=== PATIENT | male | born 1965 | race Caucasian/White ===

== ENCOUNTER 2016-12-27 13:04 | Emergency (ER) | payer BC ==
[~2016-12-27] VITALS: Ht 172.7 cm; Wt 66.0 kg
[~2016-12-27 13:04] MED LIST: DICL75TA2 PO; EPP3/2 IM
[2016-12-27 13:07] VITALS: TEMP 37.2; Ht 172.7 cm; Wt 66.0 kg
[2016-12-27] MEDS ORDERED: HYDR-3983 PO (13:16)
[2016-12-27] MEDS ORDERED: ONDANSETRON INJ 2 MG/ML 2 ML VIAL IV STA (13:28)
[2016-12-27] MEDS ORDERED: HYDROmorphone INJ 0.5 MG/0.5 ML SYR IV STA (13:28)
[2016-12-27 13:45] LABS: BASO % 0.5 %; BASO ABS # 0.05 K/uL (0-0.2); COMPLETE YES; EOS % 0.3 %; HEMATOCRIT 39.8 % (42-52); IG% 0.1 %; LYMPH ABS # 2.51 K/uL (1.2-3.4); MEAN CELL VOLUME 93.9 fL (80-100); MEAN CORPUSCULAR HEMOGLOBIN 31.4 pg (25-34); MEAN CORPUSCULAR HGB CONC 33.4 g/dl (32-36); MEAN PLATELET VOLUME 10.4 fL (7.4-10.4); MONO % 4.8 %; NEUT % 68.3 %; PLATELET COUNT 284 K/uL (130-400); RED BLOOD COUNT 4.24 M/uL (4.7-6.1); WHITE BLOOD COUNT 9.64 K/uL (4.8-10.8)
[2016-12-27] MEDS ORDERED: HYDROmorphone INJ 1 MG/ML SYR IV STA ×3 (13:52→15:38)
[2016-12-27 13:55] LABS: PARTIAL THROMBOPLASTIN RATIO 0.9; PROTHROMBIN TIME (PATIENT) 10.5 SECONDS (9.0-12.0)
[2016-12-27 14:02] LABS: BUN/CREATININE RATIO 15.1 (10-20); CALCIUM 9.1 mg/dl (8.5-10.1); CREATININE 0.88 mg/dl (0.60-1.40); POTASSIUM 3.4 mmol/L (3.5-5.1)
--- NOTE | 2016-12-27 14:43 | DIAGNOSTIC IMAGING REPORT ---
LUMBAR SPINE 5 VIEWS CLINICAL HISTORY: Fall. Low back pain. FINDINGS: 5 views of the lumbar spine are compared to study dated 08/20/2014. The skeletal structures are well mineralized. There is no radiographic evidence of fracture or malalignment. Vertebral body height and alignment are maintained. The transverse and spinous processes are intact. There is no evidence of spondylolysis. There are tiny anterior and lateral marginal osteophytes. Mild to moderate disc space narrowing is seen at L4-L5 and L5-S1. The remaining intervertebral disc spaces are well-maintained. Mild facet arthropathy is seen in the lower lumbar region. The visualized bony pelvis appears intact. There is a nonobstructed abdominal bowel gas pattern. There is moderate colonic fecal retention. IMPRESSION: There is no radiographic evidence of fracture or malalignment involving the lumbosacral spine. Electronically signed by: Jermain Santillan M.D. 12/27/2016 2:42 PM Dictated Date/Time: 12/27/2016 2:41 PM
--- NOTE | 2016-12-27 14:44 | DIAGNOSTIC IMAGING REPORT ---
R FOOT MIN 3 VIEWS ROUTINE CLINICAL HISTORY: Right foot pain status post trauma COMPARISON: None. DISCUSSION: There is a comminuted intra-articular calcaneal fracture. No additional fractures are visualized. No dislocations are evident. IMPRESSION: Comminuted intra-articular fracture of the calcaneus. Electronically signed by: Alonso Markham M.D. 12/27/2016 2:43 PM Dictated Date/Time: 12/27/2016 2:43 PM
--- NOTE | 2016-12-27 14:45 | DIAGNOSTIC IMAGING REPORT ---
C-SPINE ROUTINE 4 OR 5 VIEWS CLINICAL HISTORY: Neck pain status post trauma COMPARISON STUDY: April 15, 2015 FINDINGS: The study is performed in a supine fashion. The prevertebral soft tissues are normal. There are degenerative changes most pronounced the C6-7 level. No fractures or traumatic subluxations are visualized. IMPRESSION: No fractures or traumatic subluxations identified Electronically signed by: Alonso Markham M.D. 12/27/2016 2:44 PM Dictated Date/Time: 12/27/2016 2:43 PM
--- NOTE | 2016-12-27 14:46 | DIAGNOSTIC IMAGING REPORT ---
RIGHT ANKLE 3 VIEWS; RIGHT TIBIA AND FIBULA 2 VIEWS CLINICAL HISTORY: Fall with right foot and leg injury. FINDINGS: AP and lateral views of the right tibia and fibula with AP, lateral, and oblique views of the right ankle are obtained. Correlation is made with radiographs of the right tibia and fibula dated 06/14/2005. The skeletal structures are well mineralized. There is no radiographic evidence of right tibial or fibular fracture. No fracture is seen at the ankle joint. A nondistracted calcaneal fracture is seen on the lateral ankle view. There is no significant loss of calcaneal height. The ankle mortise is intact. There is a small ankle joint effusion. Soft tissue edema is present in the hindfoot. The knee joint is intact. The soft tissues of the calf are normal in appearance. IMPRESSION: 1. There is no radiographic evidence of right tibial or fibular fracture. 2. No fracture is seen at the ankle joint. 3. Nondistracted calcaneal fracture with overlying soft tissue edema. Electronically signed by: Jermain Santillan M.D. 12/27/2016 2:45 PM Dictated Date/Time: 12/27/2016 2:42 PM
--- NOTE | 2016-12-27 14:48 | DIAGNOSTIC IMAGING REPORT ---
THORACIC SPINE 3 VIEWS CLINICAL HISTORY: Fall with thoracic back pain. FINDINGS: AP, lateral, and swimmer's views of the thoracic spine are obtained. No prior studies are available for comparison at the time of dictation. The skeletal structures are well mineralized. There is no radiographic evidence of fracture or malalignment in the thoracic spine. Vertebral body height and alignment are maintained. The disc spaces are preserved. The transverse processes and pedicles are grossly intact as seen on the frontal view. The visualized posterior ribs are intact. The imaged lung parenchyma appears clear. IMPRESSION: There is no radiographic evidence of fracture or malalignment involving the thoracic spine. Electronically signed by: Jermain Santillan M.D. 12/27/2016 2:46 PM Dictated Date/Time: 12/27/2016 2:45 PM
--- NOTE | 2016-12-27 14:48 | DIAGNOSTIC IMAGING REPORT ---
R HEEL MIN 2 VIEWS CLINICAL HISTORY: Right heel pain status post trauma COMPARISON: None. DISCUSSION: There is a mildly comminuted intra-articular fracture of the calcaneus. IMPRESSION: Comminuted intra-articular fracture of the calcaneus. Electronically signed by: Alonso Markham M.D. 12/27/2016 2:47 PM Dictated Date/Time: 12/27/2016 2:46 PM
--- NOTE | 2016-12-27 14:49 | DIAGNOSTIC IMAGING REPORT ---
RIGHT KNEE 2 VIEWS CLINICAL HISTORY: Fall with right knee pain. FINDINGS: AP and crosstable lateral views of the right knee are compared to study dated 06/14/2005. The skeletal structures are well mineralized. No fracture is seen. There is mild degenerative narrowing at the patellofemoral articulation. The medial and lateral compartments appear maintained. A calcified fabella is incidentally noted. Prepatellar soft tissue edema is noted. There is no large joint effusion. IMPRESSION: Prepatellar soft tissue swelling with no radiographic evidence of right knee fracture. Electronically signed by: Jermain Santillan M.D. 12/27/2016 2:47 PM Dictated Date/Time: 12/27/2016 2:47 PM
--- NOTE | 2016-12-27 16:19 | DIAGNOSTIC IMAGING REPORT ---
CT OF THE RIGHT FOOT WITHOUT CONTRAST CLINICAL HISTORY: Right calcaneal fracture. COMPARISON STUDY: Right heel and ankle radiographs performed earlier today. TECHNIQUE: Axial images of the right ankle and foot were obtained without IV contrast. Sagittal and coronal reconstructions were viewed. FINDINGS: There is no acute fracture the distal right tibia or fibula. Alignment of the right ankle is anatomic. There is a comminuted mildly displaced right calcaneal fracture. Fracture extends to the posterior facet of the subtalar joint. No intra-articular bone fragment is present. Associated soft tissue swelling is present. Talar dome is intact. Alignment of the tarsometatarsal joints is anatomic. There is an equivocal nondisplaced fracture within the dorsal base of the distal phalanx of the right first toe. No additional fractures are identified on since exam. IMPRESSION: 1. Acute comminuted mildly displaced right calcaneal fracture with extension to the posterior facet of the subtalar joint. No intra-articular bone fragments. 2. Equivocal nondisplaced acute fracture of the distal phalanx of the right first toe. Electronically signed by: Santos Fried M.D. 12/27/2016 4:18 PM Dictated Date/Time: 12/27/2016 4:02 PM
[2016-12-27] MEDS ORDERED: OXYC1TAB3 PO (16:44)
[2016-12-27 16:57] VITALS: BP 153/84; PULSE 80; O2SAT 98
--- NOTE | 2016-12-27 19:49 | EMERGENCY ROOM VISIT NOTE ---
History Report prepared by Jarad: Maxi Riggs Under the Supervision of: Dr. Ady Kathleen M.D. First contact with patient: 13:23 Chief Complaint: FALL Stated Complaint: FELL OFF LADDER, RT LEG/ANKLE PAIN-WC History of Present Illness The patient is a 51 year old male who presents to the Emergency Room with complaints of sharp ankle ankle pain that began 45 minutes ago. He rates his pain a 10/10 in severity. Prior to arrival, the patient accidentally fell off of a ladder about 8 feet in the air and landed on his right foot. He did not lo he is se consciousness, hit his head, or experience any weakness. He denies any headache, neck pain, abdominal pain, back pain, hip pain, arm pain, wrist pain, left leg pain, or numbness. He is having some mild right knee pain with palpation. He denies any known medical problems. He notes that he ate some fruit before he fell about 1 hour ago. Source of History: patient Onset: 45 minutes ago Position: ankle (right) Symptom Intensity: 10/10 Quality: sharp Timing: constant Associated Symptoms: No LOC, No headache, No neck pain, No abdominal pain, No back pain, No weakness, No numbness Note: He denies any arm pain, hip pain, wrist pain, or left leg pain. He is having some mild right knee pain. Review of Systems See HPI for pertinent positives & negatives. A total of 10 systems reviewed and were otherwise negative. Past Medical & Surgical Medical Problems: (1) No Known Active Medical Problems Family History Cancer Heart disease Hypertension Social History Smoking Status: Current Every Day Smoker Alcohol Use: none Drug Use: none Marital Status: Housing Status: lives with family Occupation Status: employed Current/Historical Medications Scheduled Hydrocodone/Acetaminophen 7.5MG/325MG ([place] 7.5MG/325MG), 1 TAB PO BID Scheduled PRN Oxycodone Immediate Rel Tab (Roxicodone Ir), 1-2 TAB PO Q4H PRN for Severe Pain Allergies Coded Allergies: Tramadol (Verified Allergy, Unknown, 08/24/13) Physical Exam Vital Signs Date Time Temp Pulse Resp B/P (MAP) Pulse Ox O2 Delivery O2 Flow Rate FiO2 12/27/16 16:57 80 20 153/84 98 12/27/16 15:44 89 20 148/93 97 Room Air 12/27/16 14:47 87 20 140/91 99 Room Air 12/27/16 13:07 37.2 72 22 149/86 96 Room Air Physical Exam Constitutional: Vital signs reviewed. Eyes: Pupils are equal round reactive to light. Conjunctiva are noninjected. ENT: Pharynx is clear without erythema or exudate. Mucous membranes are moist. Neck supple without meningeal signs. Respiratory: Clear to auscultation bilaterally. Breath sounds are equal bilaterally. Cardiovascular: Regular rate and rhythm. No rubs or gallops. GI: Soft, nondistended and nontender. Bowel sounds are present. Musculoskeletal: No midline tenderness to the cervical, thoracic, or lumbosacral spine. No hip tenderness. No upper extremity tenderness. Tenderness diffusely to the right ankle and calcaneus with normal distal pulses. Integumentary: No cyanosis. Neurological: The patient is awake and alert. No focal deficits. Psychiatric: Normal affect. Medical Decision & Procedures ER Provider Diagnostic Interpretation: Radiology results as stated below per my review and the radiologist's interpretation: RIGHT ANKLE 3 VIEWS; RIGHT TIBIA AND FIBULA 2 VIEWS CLINICAL HISTORY: Fall with right foot and leg injury. FINDINGS: AP and lateral views of the right tibia and fibula with AP, lateral, and oblique views of the right ankle are obtained. Correlation is made with radiographs of the right tibia and fibula dated 06/14/2005. The skeletal structures are well mineralized. There is no radiographic evidence of right tibial or fibular fracture. No fracture is seen at the ankle joint. A nondistracted calcaneal fracture is seen on the lateral ankle view. There is no significant loss of calcaneal height. The ankle mortise is intact. There is a small ankle joint effusion. Soft tissue edema is present in the hindfoot. The knee joint is intact. The soft tissues of the calf are normal in appearance. IMPRESSION: 1. There is no radiographic evidence of right tibial or fibular fracture. 2. No fracture is seen at the ankle joint. 3. Nondistracted calcaneal fracture with overlying soft tissue edema. Electronically signed by: Jermain Santillan M.D. 12/27/2016 2:45 PM Dictated Date/Time: 12/27/2016 2:42 PM THORACIC SPINE 3 VIEWS CLINICAL HISTORY: Fall with thoracic back pain. FINDINGS: AP, lateral, and swimmer's views of the thoracic spine are obtained. No prior studies are available for comparison at the time of dictation. The skeletal structures are well mineralized. There is no radiographic evidence of fracture or malalignment in the thoracic spine. Vertebral body height and alignment are maintained. The disc spaces are preserved. The transverse processes and pedicles are grossly intact as seen on the frontal view. The visualized posterior ribs are intact. The imaged lung parenchyma appears clear. IMPRESSION: There is no radiographic evidence of fracture or malalignment involving the thoracic spine. Electronically signed by: Jermain Santillan M.D. 12/27/2016 2:46 PM Dictated Date/Time: 12/27/2016 2:45 PM LUMBAR SPINE 5 VIEWS CLINICAL HISTORY: Fall. Low back pain. FINDINGS: 5 views of the lumbar spine are compared to study dated 08/20/2014. The skeletal structures are well mineralized. There is no radiographic evidence of fracture or malalignment. Vertebral body height and alignment are maintained. The transverse and spinous processes are intact. There is no evidence of spondylolysis. There are tiny anterior and lateral marginal osteophytes. Mild to moderate disc space narrowing is seen at L4-L5 and L5-S1. The remaining intervertebral disc spaces are well-maintained. Mild facet arthropathy is seen in the lower lumbar region. The visualized bony pelvis appears intact. There is a nonobstructed abdominal bowel gas pattern. There is moderate colonic fecal retention. IMPRESSION: There is no radiographic evidence of fracture or malalignment involving the lumbosacral spine. Electronically signed by: Jermain Santillan M.D. 12/27/2016 2:42 PM Dictated Date/Time: 12/27/2016 2:41 PM RIGHT KNEE 2 VIEWS CLINICAL HISTORY: Fall with right knee pain. FINDINGS: AP and crosstable lateral views of the right knee are compared to study dated 06/14/2005. The skeletal structures are well mineralized. No fracture is seen. There is mild degenerative narrowing at the patellofemoral articulation. The medial and lateral compartments appear maintained. A calcified fabella is incidentally noted. Prepatellar soft tissue edema is noted. There is no large joint effusion. IMPRESSION: Prepatellar soft tissue swelling with no radiographic evidence of right knee fracture. Electronically signed by: Jermain Santillan M.D. 12/27/2016 2:47 PM Dictated Date/Time: 12/27/2016 2:47 PM R FOOT MIN 3 VIEWS ROUTINE CLINICAL HISTORY: Right foot pain status post trauma COMPARISON: None. DISCUSSION: There is a comminuted intra-articular calcaneal fracture. No additional fractures are visualized. No dislocations are evident. IMPRESSION: Comminuted intra-articular fracture of the calcaneus. Electronically signed by: Alonso Markham M.D. 12/27/2016 2:43 PM Dictated Date/Time: 12/27/2016 2:43 PM C-SPINE ROUTINE 4 OR 5 VIEWS CLINICAL HISTORY: Neck pain status post trauma COMPARISON STUDY: April 15, 2015 FINDINGS: The study is performed in a supine fashion. The prevertebral soft tissues are normal. There are degenerative changes most pronounced the C6-7 level. No fractures or traumatic subluxations are visualized. IMPRESSION: No fractures or traumatic subluxations identified Electronically signed by: Alonso Markham M.D. 12/27/2016 2:44 PM Dictated Date/Time: 12/27/2016 2:43 PM RIGHT ANKLE 3 VIEWS; RIGHT TIBIA AND FIBULA 2 VIEWS CLINICAL HISTORY: Fall with right foot and leg injury. FINDINGS: AP and lateral views of the right tibia and fibula with AP, lateral, and oblique views of the right ankle are obtained. Correlation is made with radiographs of the right tibia and fibula dated 06/14/2005. The skeletal structures are well mineralized. There is no radiographic evidence of right tibial or fibular fracture. No fracture is seen at the ankle joint. A nondistracted calcaneal fracture is seen on the lateral ankle view. There is no significant loss of calcaneal height. The ankle mortise is intact. There is a small ankle joint effusion. Soft tissue edema is present in the hindfoot. The knee joint is intact. The soft tissues of the calf are normal in appearance. IMPRESSION: 1. There is no radiographic evidence of right tibial or fibular fracture. 2. No fracture is seen at the ankle joint. 3. Nondistracted calcaneal fracture with overlying soft tissue edema. Electronically signed by: Jermain Santillan M.D. 12/27/2016 2:45 PM Dictated Date/Time: 12/27/2016 2:42 PM R HEEL MIN 2 VIEWS CLINICAL HISTORY: Right heel pain status post trauma COMPARISON: None. DISCUSSION: There is a mildly comminuted intra-articular fracture of the calcaneus. IMPRESSION: Comminuted intra-articular fracture of the calcaneus. Electronically signed by: Alonso Markham M.D. 12/27/2016 2:47 PM Dictated Date/Time: 12/27/2016 2:[address] OF THE RIGHT FOOT WITHOUT CONTRAST CLINICAL HISTORY: Right calcaneal fracture. COMPARISON STUDY: Right heel and ankle radiographs performed earlier today. TECHNIQUE: Axial images of the right ankle and foot were obtained without IV contrast. Sagittal and coronal reconstructions were viewed. FINDINGS: There is no acute fracture the distal right tibia or fibula. Alignment of the right ankle is anatomic. There is a comminuted mildly displaced right calcaneal fracture. Fracture extends to the posterior facet of the subtalar joint. No intra-articular bone fragment is present. Associated soft tissue swelling is present. Talar dome is intact. Alignment of the tarsometatarsal joints is anatomic. There is an equivocal nondisplaced fracture within the dorsal base of the distal phalanx of the right first toe. No additional fractures are identified on since exam. IMPRESSION: 1. Acute comminuted mildly displaced right calcaneal fracture with extension to the posterior facet of the subtalar joint. No intra-articular bone fragments. 2. Equivocal nondisplaced acute fracture of the distal phalanx of the right first toe. Electronically signed by: Santos Fried M.D. 12/27/2016 4:18 PM Dictated Date/Time: 12/27/2016 4:02 PM Laboratory Results 12/27/16 13:16 Red Blood Count 4.24, Mean Corpuscular Volume 93.9, Mean Corpuscular Hemoglobin 31.4, Mean Corpuscular Hemoglobin Concent 33.4, Mean Platelet Volume 10.4, Neutrophils (%) (Auto) 68.3, Lymphocytes (%) (Auto) 26.0, Monocytes (%) (Auto) 4.8, Eosinophils (%) (Auto) 0.3, Basophils (%) (Auto) 0.5, Neutrophils # (Auto) 6.58, Lymphocytes # (Auto) 2.51, Monocytes # (Auto) 0.46, Eosinophils # (Auto) 0.03, Basophils # (Auto) 0.05 12/27/16 13:16 Test 12/27/16 13:16 White Blood Count 9.64 K/uL (4.8-10.8) Red Blood Count 4.24 M/uL (4.7-6.1) Hemoglobin 13.3 g/dL (14.0-18.0) Hematocrit 39.8 % (42-52) Mean Corpuscular Volume 93.9 fL (80-100) Mean Corpuscular Hemoglobin 31.4 pg (25-34) Mean Corpuscular Hemoglobin Concent 33.4 g/dl (32-36) Platelet Count 284 K/uL (130-400) Mean Platelet Volume 10.4 fL (7.4-10.4) Neutrophils (%) (Auto) 68.3 % Lymphocytes (%) (Auto) 26.0 % Monocytes (%) (Auto) 4.8 % Eosinophils (%) (Auto) 0.3 % Basophils (%) (Auto) 0.5 % Neutrophils # (Auto) 6.58 K/uL (1.4-6.5) Lymphocytes # (Auto) 2.51 K/uL (1.2-3.4) Monocytes # (Auto) 0.46 K/uL (0.11-0.59) Eosinophils # (Auto) 0.03 K/uL (0-0.5) Basophils # (Auto) 0.05 K/uL (0-0.2) RDW Standard Deviation 42.8 fL (36.4-46.3) RDW Coefficient of Variation 12.5 % (11.5-14.5) Immature Granulocyte % (Auto) 0.1 % Immature Granulocyte # (Auto) 0.01 K/uL (0.00-0.02) Prothrombin Time 10.5 SECONDS (9.0-12.0) Prothromb Time International Ratio 1.0 (0.9-1.1) Activated Partial Thromboplast Time 24.5 SECONDS (21.0-31.0) Partial Thromboplastin Ratio 0.9 Anion Gap 9.0 mmol/L (3-11) Est Creatinine Clear Calc Drug Dose 94.8 ml/min Estimated GFR () 116.9 Estimated GFR (Non- 100.9 BUN/Creatinine Ratio 15.1 (10-20) Calcium Level 9.1 mg/dl (8.5-10.1) Laboratory results as reviewed by me. Medications Administered Medications (Trade) Dose Ordered Sig/Love Route Start Time Stop Time Status Last Admin Dose Admin Hydromorphone HCl (Dilaudid Inj) 0.5 mg NOW STAT IV 12/27/16 13:28 12/27/16 13:31 DC 12/27/16 13:36 0.5 MG Ondansetron HCl (Zofran Inj) 4 mg NOW STAT IV 12/27/16 13:28 12/27/16 13:31 DC 12/27/16 13:36 4 MG Hydromorphone HCl (Dilaudid Inj) 0.5 mg NOW STAT IV 12/27/16 13:52 12/27/16 13:54 DC 12/27/16 14:00 0.5 MG Hydromorphone HCl (Dilaudid Inj) 0.5 mg NOW STAT IV 12/27/16 14:46 12/27/16 14:50 DC 12/27/16 14:58 0.5 MG Hydromorphone HCl (Dilaudid Inj) 1 mg NOW STAT IV 12/27/16 15:38 12/27/16 15:39 DC 12/27/16 15:44 1 MG ED Course 1323: The patient was evaluated in room A10. A complete history and physical exam was performed. 1328: Ordered Zofran Inj 4 mg IV, Dilaudid Inj 0.5 mg IV 1352: Ordered Dilaudid Inj 0.5 mg IV 1446: Ordered Dilaudid Inj 0.5 mg IV 1510: The patient was seen by [facility] in the past for problems with the nerves in his right arm. He is currently on Vicodin for pain management. 1535: I spoke with Dr. Moore of [facility] at this time. He recommended a bulky dressing with a splint. He will see the patient in his office later this week. He also requested a CT scan before the patient is discharged. The patient requested more pain medication. 1538: Ordered Dilaudid Inj 1 mg IV 1641: The patient mentioned that he is out of his Vicodin prescription and would like something stronger for the pain. 1654: Upon reevaluation, the patient appeared to have improvement of his symptoms. I discussed tonight's findings with him. He verbalized agreement of the treatment plan. He was discharged home. Medical Decision This is a 51-year-old male who presents with injuries after fall. Differential diagnosis includes calcaneal fracture, ankle fracture, contusion, dislocation, vertebral fracture. I did perform a limited focused review of portions of the patient's old chart on the electronic medical record. The patient has had no recent pertinent visits to this hospital. I did evaluate the patient as noted above. The patient is having severe pain to his right heel after falling onto it. He denies any other injuries. On his exam he has significant tenderness to his calcaneus. IV access was established. The patient was treated with multiple doses of IV Dilaudid. He is currently on Vicodin for chronic pain to his arms. He does have a tolerance for narcotics. I did order and personally review the patient's x-rays as described above. He does have a comminuted intra-articular calcaneal fracture. No vertebral fracture is noted. I did order and review the patient's blood work as noted in the electronic medical record. I did discuss the test results with the patient. I did discuss the case with Dr. Moore of [facility]. He recommended getting an MRI and will follow up with the patient as an outpatient later this week. The patient was placed in a bulky dressing and placed in a posterior mold with stirrup. I did order a CT of the right foot. I did review the images myself as well as the radiology report as described above. He was discharged with crutches and told to be nonweightbearing. He was given a prescription for oxycodone for pain. [place] Drug Monitoring Program Search Results: patient reviewed within database Drug Monitoring Findings: He was given Vicodin on November 29, 30 tablets. No other issues. Medication Reconcilliation Current Medication List: was personally reviewed by me Blood Pressure Screening Patient's blood pressure: Elevated blood pressure Blood pressure disposition: Referred to PCP Consults Time Called: 1530 Consulting Physician: Dr. Moore - Orthopedics Returned Call: [phone] We discussed the patient's case. He recommended a bulky dressing with a splint. He will follow up with the patient in his office later this week. He also requested a CT scan before discharge. Impression Primary Impression: Right calcaneal fracture Additional Impression: Fall Scribe Attestation The scribe's documentation has been prepared under my direct and personally reviewed by me in its entirety. I confirm that the note above accurately reflects all work, treatment, procedures, and medical decision making performed by me. Departure Information Dispostion Home / Self-Care Prescriptions Oxycodone Immediate Rel Tab (ROXICODONE IR) 5 Mg Tab 1-2 TAB PO Q4H Y for Severe Pain, #30 TAB Prov: Ady Kathleen M.D. 12/27/16 Referrals No Doctor, Assigned (PCP) Darnell Moore D.O. Dietrich, Henry T., M.D. Forms HOME CARE DOCUMENTATION FORM, IMPORTANT VISIT INFORMATION Patient Instructions My [facility] Additional Instructions You have been examined and treated today on an emergency basis only. This is not a substitute for, or an effort to provide, complete comprehensive medical care. It is impossible to recognize and treat all injuries or illnesses in a single emergency department visit. It is therefore important that you follow up closely with Dr. Moore of orthopedics later this week. Call as soon as possible for an appointment. Return for worsening symptoms or if you develop loss of sensation or strength in the right foot, discoloration or excessive coldness to the toes, or any other concerning symptoms. Do not put any weight on your right foot. Problem Qualifiers Primary Impression: Right calcaneal fracture Encounter type: initial encounter Fracture type: closed Fracture morphology : intra-articular Fracture alignment: nondisplaced Qualified Codes: S92.064A - Nondisplaced intraarticular fracture of right calcaneus, initial encounter for closed fracture Additional Impression: Fall Encounter type: initial encounter Qualified Codes: W19.XXXA - Unspecified fall, initial encounter
== END 2016-12-27 16:58 | disposition home or self-care (01) ==
LOC: C.EDB 13:06 → C.EDA 16:58
DX: S92.061A Displaced intraarticular fracture of right calcaneus, initial encounter for closed fracture (principal); S92.424A Nondisplaced fracture of distal phalanx of right great toe, initial encounter for closed fracture; W11.XXXA Fall on and from ladder, initial encounter; Z80.9 Family history of malignant neoplasm, unspecified; Z82.49 Family history of ischemic heart disease and other diseases of the circulatory system; F17.210 Nicotine dependence, cigarettes, uncomplicated

== ENCOUNTER 2019-09-14 10:16 | Inpatient (IN) ==
--- NOTE | 2019-08-29 10:39 | PAT Medication Instructions ---
Medication Instructions Date of Service August 29, 2019 Home Medications buprenorphine-naloxone 1 film SUBLINGUAL QAM fluticasone propionate [Flonase Allergy Relief] 1 spray INTRANASAL QAM PRN oxymetazoline [Afrin (oxymetazoline)] 2 spray INTRANASAL Q12H PRN DO NOT take the morning of surgery oxymetazoline [Afrin (oxymetazoline)] 2 spray INTRANASAL Q12H PRN Take morning of surgery With a small sip of water, OTHERWISE NOTHING TO EAT OR DRINK AFTER MIDNIGHT: buprenorphine-naloxone 1 film SUBLINGUAL QAM fluticasone propionate [Flonase Allergy Relief] 1 spray INTRANASAL QAM PRN (if needed) Take evening before surgery fluticasone propionate [Flonase Allergy Relief] 1 spray INTRANASAL QAM PRN (if needed) oxymetazoline [Afrin (oxymetazoline)] 2 spray INTRANASAL Q12H PRN (if needed) Other Notes If you have any questions please call us at [phone] or [phone] or [phone] or [phone]
--- NOTE | 2019-08-31 11:12 | Anesthesiology Consultation ---
Date of Service August 31, 2019 Assessment & Plan (1) Encounter for pre-operative examination: COVID Status: As of 08/29 nurse assessment, patient denies travel to endemic area, known exposure/sick contacts, or symptoms of COVID19. Preoperative COVID19 testing to be completed 3 days prior to surgery. Chart Review Chart Review: Acceptable Risk for Surgery and Patient seen in Pre Admission Testing Teaching & Discussion Instructed NPO after midnight before surgery, except medications with 15 cc of water. Medication instructions provided according to the PAT guidelines. History Surgery Operation Date: 09/14/19 10:35 Proposed Procedures p L4-L5 Decompression Fusion, Spinal Cord Monitoring - Sam Tineo, Height/Weight Height: 5 ft 8 in Weight: 67.9 kg Allergies Allergy/AdvReac Type Severity Reaction Status Date / Time tramadol Allergy Unknown UNABLE TO Verified 08/22/19 15:34 URINATE Medications Home Medications Medication Instructions Recorded Confirmed Last Taken buprenorphine-naloxone 1 film SUBLINGUAL QAM 11/10/18 08/22/19 11/25/18 fluticasone propionate [Flonase 1 spray INTRANASAL QAM PRN 08/22/19 08/22/19 Unknown Allergy Relief] oxymetazoline [Afrin 2 spray INTRANASAL Q12H PRN 08/22/19 08/22/19 Unknown (oxymetazoline)] Past Medical History Medical History Anxiety (Chronic) Arthritis Chronic back pain TO BOTH LEGS/FEET Gastroesophageal reflux disease HX History of opioid abuse Currently on Suboxone. History of palpitations RAPID HEART RATE ON OCC, R/T ANXIETY Exercise / Class Metabolic Activity 1 > 8 Run/Swim/Ski/Tennis (PRIOR TO BACK BEING THIS BAD) Past Family History Family History Uncle Family history of diabetes mellitus Other No pertinent family history in first degree relatives Past Surgical History Surgical History H/O elbow surgery RIGHT ULNAR NERVE History of colonoscopy History of esophagogastroduodenoscopy (EGD) History of hand surgery LEFT LIGAMENT SURGERY History of herniorrhaphy UMBILICAL Past Anesthesia History No Hx of Anesthesia Complications and No Family Hx of Anesthesia Complications History of PONV No Hx of PONV and No Hx of Motion Sickness Social History Smoking Status: Former smoker Do You Dip or Chew Tobacco: Yes (1 CAN PER WEEK) Smoking End Date: QUIT 2018-USED TO SMOKE UP TO 1 PPD Hx Alcohol Use: No Hx Substance Use: Yes substance use type: marijuana Substance Use Type Other:: USES MARIJUANA DAILY-1 JOINT A DAY Review of Systems Pt denies any recent chest pain, shortness of breath, cough, fever or URI. +palpitations +severe back pain Physical Exam Vital Signs BP: 157/94 (pt is visibly in significant pain, hurts worse to sit) P: 77bpm SPO2: 99% RA T: 77bpm R: 98.4 F Constitutional + acute distress (pacing, wincing) ENMT Mouth: + dental restorations (lower R premolar implant); no chipped teeth and no loose teeth Thyromental Distance: > or= 3.5 Finger Breadths (3.5) Mallampati Class: II Neck normal visual inspection; neck extension not limited Respiratory normal respiratory effort Auscultation: lungs clear to auscultation bilaterally Cardiovascular Rate/Rhythm: regular rate and regular rhythm Heart Sounds: no murmur Testing Laboratory Results 08/31/19 11:20 08/31/19 11:20 PT 10.8 Seconds (9.0-12.0) 08/31/19 11:20 INR 1.0 (0.9-1.1) 08/31/19 11:20 APTT 29.7 Seconds (21.0-31.0) 08/31/19 11:20 Urine Color Yellow 08/31/19 Unknown Urine Appearance Clear (Clear) 08/31/19 Unknown Urine pH 6.0 (4.5-7.5) 08/31/19 Unknown Ur Specific [place] 1.011 (1.000-1.030) 08/31/19 Unknown Urine Protein Negative (Negative) 08/31/19 Unknown Urine Glucose (UA) Negative (Negative) 08/31/19 Unknown Urine Ketones Negative (Negative) 08/31/19 Unknown Urine Nitrite Negative (Negative) 08/31/19 Unknown Ur Leukocyte Esterase Negative (Negative) 08/31/19 Unknown Blood Type O Negative 08/31/19 11:20 Antibody Screen NEGATIVE 08/31/19 11:20 Electrocardiogram Date: 11/10/18 Sinus rhythm @ 85bpm with sinus arrhythmia with occasional PVCs. Otherwise normal EKG. Chest X-Ray Date: 08/31/19 Findings: + NAD Lungs are mildly hyperinflated.
--- NOTE | 2019-08-31 11:43 | XRay Report ---
XR chest Pre-admission PA/Lat HISTORY: 54 years-old Male pat preoperative exam. No acute chest complaints COMPARISON: Chest radiograph 04/22/2013 TECHNIQUE: PA and lateral views of the chest FINDINGS: Lungs are mildly hyperinflated. No pneumothorax, pleural effusion, airspace consolidation or overt pu lmonary edema. Bones of the chest appear grossly intact. IMPRESSION: No acute process. ACT 112: Negative or not required by law. The above report was generated using voice recognition software. It may contain grammatical, syntax o r spelling errors. Electronically signed by: Hai Gross M.D. 08/31/2019 11:41 AM
[2019-08-31 13:04] LABS: Appearance Urine Clear (Clear); Bilirubin Urine Negative (Negative); Blood Urine Negative (Negative); Color Urine Yellow; Glucose Urine UA Negative (Negative); Ketones Urine Negative (Negative); Leukocyte Esterase Urine Negative (Negative); Nitrite Urine Negative (Negative); Protein Urine Negative (Negative); Specific Gravity Urine 1.011 (1.000-1.030); Urobilinogen Urine Negative (Negative)
[2019-08-31 13:06] LABS: Basophils # (auto) 0.04 K/uL (0-0.2); Basophils % (auto) 0.6 %; Eosinophils # (auto) 0.11 K/uL (0-0.5); Eosinophils % (auto) 1.6 %; Hematocrit (blood only) 41.4 % (42-52); Hemoglobin 13.9 g/dL (14.0-18.0); Immature Granulocytes # (auto) 0.02 K/uL (0.00-0.02); Immature Granulocytes % (auto) 0.3 %; Lymphocytes % (auto) 40.2 %; Mean Corpuscular Hemoglobin 31.4 pg (25-34); Mean Corpuscular Hgb Conc 33.6 g/dL (32-36); Mean Corpuscular Volume 93.7 fL (80-100); Mean Platelet Volume 10.8 fL (7.4-10.4); Monocytes # (auto) 0.36 K/uL (0.11-0.59); Monocytes % (auto) 5.2 %; Neutrophils # (auto) 3.63 K/uL (1.4-6.5); Neutrophils % (auto) 52.1 %; Platelet Count 280 K/uL (130-400); RDW Coefficient of Variation 12.9 % (11.5-14.5); RDW Standard Deviation 44.1 fL (36.4-46.3); Red Blood Count 4.42 M/uL (4.7-6.1); White Blood Count 6.96 K/uL (4.8-10.8)
[2019-08-31 13:09] LABS: BUN Creatinine Ratio 13.8 (10-20); Est GFR (African American) 117.3; Est GFR (Non-African American) 101.2; Potassium 3.7 mmol/L (3.5-5.1)
[2019-08-31 13:18] LABS: Partial Thromboplastin Ratio 1.1; Partial Thromboplastin Time 29.7 Seconds (21.0-31.0); Prothrombin Time 10.8 Seconds (9.0-12.0)
[~2019-09-14 10:16] MED LIST changes: +ACETAMINOPHEN 500 MG TAB PO SCH; +CEFAZOLIN 1000MG 1,000 MG/7.5 ML SYR IV SCH; +CeleBREX 200 MG CAP PO SCH; -DICL75TA2 PO; -EPP3/2 IM; +GABAPENTIN 900 MG DOSE PO SCH; +LR 15ML/HR IV SCH
[2019-09-14] MEDS ORDERED: ATROPINE SULFATE 0.1 MG/ML 10ML SYR IV PRN (12:43)
[2019-09-14] MEDS ORDERED: ONDANSETRON INJ 2 MG/ML 2 ML VIAL IV PRN ×2 (12:43→19:22)
[2019-09-14] MEDS ORDERED: MIDAZOLAM HCL 1 MG/ML 2ML VIAL ONE (13:03)
[2019-09-14] MEDS ORDERED: fentaNYL citrate 100 MCG/2 ML VIAL ONE ×2 (13:03→17:26)
[2019-09-14] MEDS ORDERED: HYDROmorphone INJ 2 MG/ML SYR/VIAL ONE ×3 (13:04→18:06)
--- NOTE | 2019-09-14 14:09 | History & Physical Bridge Note ---
Date of Service September 14, 2019 History & Physical Bridge Note I have examined the patient, reviewed the History & Physical and in the interval since the performance of the History & Physical I have noted the following changes of clinical significance: no changes noted
--- NOTE | 2019-09-14 14:10 | History & Physical Report ---
Date of Service September 14, 2019 Assessment & Plan (1) Neurogenic claudication due to lumbar spinal stenosis: L4-L5 decompression fusion Present on Admission?: Yes History of Present Illness Chief Complaint: Back and leg pain Primary Care Provider: Chitra Cruz DO This is a 54-year-old male who presents with worsening back and leg pain. After failing extensive course of nonoperative care is here for surgical intervention. Allergies Allergy/AdvReac Type Severity Reaction Status Date / Time tramadol Allergy Unknown UNABLE TO Verified 09/14/19 10:35 URINATE Home Medications Home Medications Medication Instructions Recorded Confirmed Type buprenorphine-naloxone 1 film SUBLINGUAL QAM 11/10/18 09/14/19 History fluticasone propionate [Flonase 1 spray INTRANASAL QAM PRN 08/22/19 09/14/19 History Allergy Relief] oxymetazoline [Afrin 2 spray INTRANASAL Q12H PRN 08/22/19 09/14/19 History (oxymetazoline)] acetaminophen [Acetaminophen Extra 500 mg PO Q6H PRN 09/14/19 09/14/19 History Strength] Past Med/Surg History Medical History Anxiety (Chronic) Arthritis Chronic back pain TO BOTH LEGS/FEET Gastroesophageal reflux disease HX History of opioid abuse Currently on Suboxone. History of palpitations RAPID HEART RATE ON OCC, R/T ANXIETY Surgical History H/O elbow surgery RIGHT ULNAR NERVE History of colonoscopy History of esophagogastroduodenoscopy (EGD) History of hand surgery LEFT LIGAMENT SURGERY History of herniorrhaphy UMBILICAL Family History Uncle Family history of diabetes mellitus Other No pertinent family history in first degree relatives Social History Preferred Language: Sudanese Communication Ability: Effective Curtain Stretcher Required: No Beliefs That Will Affect Care: None Current Living Situation: Spouse Other Information That Helps Us Care for You: No Feels Safe at Home: Yes Safety Concerns: Feels Safe At This Time Smoking Status: Former smoker Do You Dip or Chew Tobacco: Yes (1 CAN PER WEEK) ; Smoking End Date: QUIT 2018-USED TO SMOKE UP TO 1 PPD ; Second Hand Exposure: No ; Hx Alcohol Use: No Hx Substance Use: Yes substance use type: marijuana Substance Use Type Other:: USES MARIJUANA DAILY-1 JOINT A DAY Physical Exam Physical Exam: Patient is alert and oriented neurologically intact. Heart regular rate and rhythm. Lungs clear to auscultation. Results & Data Vital Signs (Past 12 Hours) Vital Signs Temp Pulse Resp BP Pulse Ox 09/14/19 10:44 37 C 75 16 122/79 99
[2019-09-14] MEDS ORDERED: EPINEPHrine INJ 1 MG/ML AMP ONE (14:57)
[2019-09-14] MEDS ORDERED: BUPIVACAINE 0.5 % 5 MG/1 ML MPF 30ML VIAL ONE (14:57)
[2019-09-14] MEDS ORDERED: BACITRACIN INJ 50,000 UNIT VIAL ONE (14:57)
[2019-09-14] MEDS ORDERED: ONDANSETRON INJ 2 MG/ML 2 ML VIAL ONE (15:35)
[2019-09-14] MEDS ORDERED: LIDOCAINE HCL 2% 2 ML VIAL/AMP(20MG/ML) INFIL ONE (15:35)
[2019-09-14] MEDS ORDERED: PROPOFOL IV EMULSION 10 MG/ML 20 ML VIAL IV ONE (15:35)
[2019-09-14] MEDS ORDERED: DEXAMETHASONE SOD INJ 4 MG/ML VIAL ONE (15:35)
[2019-09-14] MEDS ORDERED: FLOSEAL HEMOSTATIC MATRIX 10ML TOP ONE (16:09)
--- NOTE | 2019-09-14 16:44 | Operative Report ---
Post Operative Report Pre & Post Diagnosis Operation Date: 09/14/19 11:55 Pre-Op Diagnosis: Spondylolisthesis Lumbar Region Post-Op Diagnosis: Spondylolisthesis Lumbar Region I identified the patient and participated in the time-out.: Yes Procedure Operation Date: 09/14/19 11:55 Actual Procedures #1 lumbar decompression with bilateral medial facetectomies and foraminotomies L3-4 L4-5. #2 posterior spinal fusion L4-5 per #3 placement posterior instrumentation L4-5 per #4 interbody fusion L4-5 per #5 placement peek cage 11 x 26 mm at L4-5 per #6 placement of locally harvested morselized autograft in the posterior lateral gutters per #7 placement infuse collagen sponge combined master graft in the posterior gutters and ostial amp and interbody space. Surgeon Sam Tineo, Combat Systems Operator Navarro Mckay Estimated Blood Loss 50 Findings Consistent with Post-Op Diagnosis Specimens None Indications This is a 54-year-old male who presents with above-mentioned diagnosis after failing extensive course of nonoperative care is here for surgical invention. Description of Procedure Patient was met with identified informed consent obtained. Patient was then taken to the operative suite underwent intubation placed in a prone position on the Dagoberto table on top of the [place] frame. All bony prominences well-padded eyes inspected to ensure no external pressure placed upon them. This point the lumbar spine was prepped and draped in the normal sterile fashion. Sharp d issection with the assistance of Bovie cautery was performed down to and exposing the lamina transverse processes of L4 and L5. From a caudal cephalad fashion complete laminectomy of L4 partial laminectomy of L3 is performed including medial facetectomies and foraminotomies particular addressing the neuroforamen L4-5 on the right. I did note significant neural compression. After this complete pedicle screws were placed in L4 and L5 bilaterally with assistance of fluoroscopy and appropriately sized keila placed. The way of a transforaminal approach on the right a complete discectomy of L4-5 was performed endplates curetted to subcortical leading bone and the 11 x 26 mm peek cage filled with osteo-bone graft tapped in position. The rods then locked in final position bilaterally. The transverse processes of L4 and L5 bur to subcortical bleeding bone. Infuse collagen sponge master graft local autograft placed in the posterior gutters. 15 round ENOC drain inserted. The incision was then closed with 1 Vicryl the fascia 2-0 Vicryl subcutaneously and 4 Monocryl for final skin closure. Steri-Strip sterile dressings placed. Patient will continue PACU stable condition. Please note Navarro record present at the entire procedure involved the patient positioning complex portions of the surgery and final skin closure. Lastly spinal cord monitoring was utilized that the procedure no changes noted. I attest to the content of the Intraoperative Record and any orders documented therein. Any exceptions are noted below.
[2019-09-14] MEDS: HYDROmorphone INJ 1 MG/ML SYRINGE IV PRN ×5 (17:06→17:48)
--- NOTE | 2019-09-14 17:09 | Fluoroscopy Report ---
FL lumbar spine 2-3V CLINICAL HISTORY: L4-L5 DECOMPRESSION AND FUSION COMPARISON STUDY: Lumbar spine radiographs December 27, 2016. FLUOROSCOPY TIME: 15.8 seconds. FLUOROSCOPIC IMAGES: 2. FINDINGS: These images demonstrate L4-L5 discectomy with interbody spacer placement. Posterior decomp ression is noted. There are bilateral pedicle screws at the L4 and L5 levels. Hardware is intact. The re are no unexpected radiopaque foreign bodies. IMPRESSION: Fluoroscopy provided for L4-L5 discectomy, posterior decompression and bilateral pedicle screw fusion. ACT 112: Negative or not required by law. Electronically signed by: Santos Fried M.D. 09/14/2019 5:08 PM
[2019-09-14] MEDS: fentaNYL citrate 100 MCG/2 ML VIAL IV PRN ×4 (17:28→17:43)
[2019-09-14] MEDS: HYDROmorphone INJ 2 MG/ML SYR/VIAL IV PRN ×3 (17:54→18:14)
[2019-09-14] MEDS ORDERED: LORazepam 2 MG/4 ML VIAL ONE (17:57)
[2019-09-14] MEDS ORDERED: LORazepam 0.5 MG/1 ML VIAL IV STA (18:02)
--- NOTE | 2019-09-14 19:10 | Anesthesiology Progress Note ---
Date of Service September 14, 2019 Anesthesia Post Procedure Vital Signs Vital Signs: Temp Pulse Pulse Resp BP Pulse Ox 09/14/19 18:30 36.7 C 77 12 117/81 98 09/14/19 18:20 70 12 125/82 95 09/14/19 18:10 78 12 147/85 H 100 09/14/19 18:00 86 12 154/94 H 100 09/14/19 17:50 83 26 H 158/102 H 100 09/14/19 17:40 90 18 164/101 H 100 09/14/19 17:30 93 H 14 152/79 H 99 09/14/19 17:20 87 14 157/99 H 100 09/14/19 17:10 87 12 141/112 H 100 09/14/19 17:02 36.1 C L 90 19 156/91 H 100 09/14/19 10:44 37 C 75 16 122/79 99 Pain Intensity Lower Back: Pain Intensity: 10 Transfer of Care Handoff Completed per policy Notes Mental Status: alert / awake / arousable and participated in evaluation Patient Amnestic to Procedure: Yes Nausea / Vomiting: adequately controlled Pain: adequately controlled Airway Patency, RR, SpO2: stable & adequate BP & HR: stable & adequate Hydration State: stable & adequate Anesthetic Complications: no major complications apparent
[2019-09-14] MEDS ORDERED: bisacodyL 10 MG SUPP PR PRN (19:22)
[2019-09-14] MEDS ORDERED: ACETAMINOPHEN 500 MG TAB PO PRN ×2 (19:22)
[2019-09-14] MEDS ORDERED: PROMETHAZINE HCL 12.5 MG in SODIUM CHLORIDE 0.9% 50 ML IV PRN (19:22)
[2019-09-14] MEDS ORDERED: HYDROmorphone INJ 1 MG/ML SYRINGE IV PRN (19:22)
[2019-09-14] MEDS ORDERED: HYDROmorphone INJ 0.5 MG/0.5 ML SYR IV PRN (19:22)
[2019-09-14] MEDS ORDERED: LORazepam 0.5 MG TAB PO PRN (19:22)
[2019-09-14] MEDS ORDERED: NALOXONE HCL 0.4 MG/1 ML VIAL/CARP IV PRN (19:22)
[2019-09-14] MEDS ORDERED: FAMOTIDINE 20 MG TAB PO PRN (19:22)
[2019-09-14] MEDS ORDERED: MAGNESIUM HYDROXIDE SUSP 30 ML UDC PO PRN (19:22)
[2019-09-14] MEDS ORDERED: ALUMINUM/MAGNESIUM SUSP 30 ML UDC PO PRN (19:22)
[2019-09-14] MEDS ORDERED: METOCLOPRAMIDE HCL INJ 5 MG/ML 2 ML VIAL IV PRN (19:22)
[2019-09-14] MEDS ORDERED: SOD PHOSPHATE/SOD BIPHOSPHATE ENEMA 132 ML BTL PR PRN (19:22)
[2019-09-14] MEDS ORDERED: DO NOT ADMINISTER FLU VACCINE PRN (19:22)
[2019-09-14] MEDS ORDERED: ACETAMINOPHEN 1,000 MG/100 ML VIAL IV PRN (19:22)
[2019-09-14] MEDS ORDERED: ONDANSETRON 4 MG OD TAB PO PRN (19:22)
[2019-09-14] MEDS ORDERED: FLUTICASONE PROPIONATE NA SPR 16 GM BTL PRN (19:22)
[2019-09-14] MEDS ORDERED: LORazepam 0.5 MG/1 ML VIAL IV PRN (19:22)
[2019-09-14] MEDS ORDERED: DO NOT ADMINISTER PNEUMOCOCCAL VACCINE PRN (19:22)
[2019-09-14] MEDS ORDERED: OXYMETAZOLINE 0.05% 30 ML BTL NAE PRN (20:24)
[2019-09-14] MEDS: LACTATED RINGER'S 1,000 ML IV SCH (21:22)
[2019-09-14] MEDS: KETOROLAC TROMETHAMINE 15 MG/ML VIAL IV SCH (21:28)
[2019-09-14] MEDS: DOCUSATE SODIUM/SENNA 50/8.6MG TAB PO SCH (21:28)
[2019-09-14] MEDS: OXYCODONE HCL IR 5 MG TAB (IMMEDIATE RELEASE) PO PRN (22:26)
[2019-09-14] MEDS: CEFAZOLIN 1000MG 1,000 MG/7.5 ML SYR IV SCH (22:27)
[2019-09-15] MEDS: KETOROLAC TROMETHAMINE 15 MG/ML VIAL IV SCH ×3 (02:26→14:33)
[2019-09-15] MEDS: LACTATED RINGER'S 1,000 ML IV SCH (05:22)
[2019-09-15 05:52] LABS: Basophils # (auto) 0.01 K/uL (0-0.2); Basophils % (auto) 0.1 %; Hematocrit (blood only) 36.7 % (42-52); Hemoglobin 11.7 g/dL (14.0-18.0); Immature Granulocytes # (auto) 0.03 K/uL (0.00-0.02); Immature Granulocytes % (auto) 0.2 %; Lymphocytes # (auto) 1.15 K/uL (1.2-3.4); Lymphocytes % (auto) 7.4 %; Mean Corpuscular Hemoglobin 30.2 pg (25-34); Mean Corpuscular Hgb Conc 31.9 g/dL (32-36); Mean Corpuscular Volume 94.6 fL (80-100); Monocytes # (auto) 0.64 K/uL (0.11-0.59); Monocytes % (auto) 4.1 %; Neutrophils # (auto) 13.76 K/uL (1.4-6.5); Neutrophils % (auto) 88.2 %; Platelet Count 249 K/uL (130-400); RDW Coefficient of Variation 12.8 % (11.5-14.5); RDW Standard Deviation 43.8 fL (36.4-46.3); Red Blood Count 3.88 M/uL (4.7-6.1); White Blood Count 15.59 K/uL (4.8-10.8)
[2019-09-15] MEDS: POLYETHYLENE (MIRALAX) 17 GM PACK PO SCH ×4 (05:59→23:46)
[2019-09-15] MEDS: OXYCODONE HCL IR 5 MG TAB (IMMEDIATE RELEASE) PO PRN ×3 (06:02→22:45)
[2019-09-15] MEDS: CEFAZOLIN 1000MG 1,000 MG/7.5 ML SYR IV SCH (06:03)
[2019-09-15 06:22] LABS: BUN Creatinine Ratio 15.5 (10-20); Calcium 8.3 mg/dl (8.5-10.1); Creatinine Clr Calc Pharmacy 94.3 ml/min; Est GFR (African American) 116.7; Est GFR (Non-African American) 100.7; Potassium 4.4 mmol/L (3.5-5.1)
[2019-09-15] MEDS: BUPRENORPHINE/NALOXONE 8/2 MG TAB SL SCH (08:22)
--- NOTE | 2019-09-15 10:24 | Orthopedic Progress Note ---
Date of Service September 15, 2019 Assessment & Plan (1) Neurogenic claudication due to lumbar spinal stenosis: This time we will continue physical therapy monitor his ENOC output possible discharge home tomorrow. Present on Admission?: Yes Admission and Anticipated Discharge Date Admission Date: September 14, 2019 Subjective Back pain controlled leg pain markedly improved. Physical Exam Physical Exam: Patient is good strength testing appears comfortable. Results & Data ([facility]) Vital Signs (Past 12 Hours) Vital Signs Temp Pulse Resp BP BP Pulse Ox 09/15/19 07:48 37.0 C 82 18 138/81 99 09/15/19 02:26 36.9 C 74 16 100/67 94 09/14/19 23:15 36.9 C 91 H 18 128/90 96
[2019-09-15] MEDS: DEXAMETHASONE SOD PHOSPHATE 8 MG in SYRINGE 0 ML IV SCH (11:11)
[2019-09-15] MEDS: DOCUSATE SODIUM/SENNA 50/8.6MG TAB PO SCH (20:05)
[2019-09-16] MEDS: POLYETHYLENE (MIRALAX) 17 GM PACK PO SCH ×2 (05:21→10:44)
[2019-09-16] MEDS: OXYCODONE HCL IR 5 MG TAB (IMMEDIATE RELEASE) PO PRN ×2 (06:27→10:43)
[2019-09-16] MEDS: BUPRENORPHINE/NALOXONE 8/2 MG TAB SL SCH (07:11)
[2019-09-16] MEDS: DEXAMETHASONE SOD PHOSPHATE 8 MG in SYRINGE 0 ML IV SCH (10:44)
--- NOTE | 2019-09-16 11:16 | Discharge Summary ---
Date of Service September 16, 2019 Admission HPI Per Admitting Provider This is a 54-year-old male who presents with worsening back and leg pain. After failing extensive course of nonoperative care is here for surgical intervention. Principal Diagnosis Lumbar spinal stenosis with neurogenic claudication Discharge Data Allergies Allergy/AdvReac Type Severity Reaction Status Date / Time tramadol Allergy Unknown UNABLE TO Verified 09/14/19 10:35 URINATE Consultations 09/14/19 19:22 Consult Case Management - Discharge Planning Routine Procedures Performed Operation Date: 09/14/19 11:55 Actual Procedures p L4-L5 Decompression Fusion, Spinal Cord Monitoring(Not Applicable) - Sam iTneo DO Ordered Studies 09/14/19 11:55 FL fluoroscopy <1hr Routine [place] lumbar spine 2-3V Routine Hospital Course (1) Neurogenic claudication due to lumbar spinal stenosis: Patient with lumbar decompression fusion tolerated as well as taken to orthopedic for postoperative. Postop day 1 he was up and ambulating progressed to postop day #2. Excellent strength testing. ENOC drain decreasing appropriately. Subsequently discharged home. Discharge orders and instructions from the chart for further review. Total Time Total Time Spent Total Time Spent (In Minutes): 20 minutes Discharge Plan Discharge Items Patient Disposition: Home - Self-Care Reason For Visit: Spondylolisthesis Lumbar Region Discharge Diagnosis: Lumbar spinal stenosis with radiculopathy Activity: As commented below Non-emergency contact: Primary Care Provider Call non-emergency contact if: you have any medication questions Follow-up/Referrals: Chitra Cruz DO [Primary Care Provider] - Diet: Regular Addtl Attending Provider Instructions: ACTIVITY RECOMMENDATIONS: SELF CARE INSTRUCTIONS AFTER THORACIC/LUMBAR FUSIONS 1. You may walk to your tolerance. It is good exercise for your legs and back. Expect some back and intermittent leg aches and pains. 2. You may perform "counter-top" level activities (make a sandwich, dima with a project, etc.). 3. No bending or lifting of more than 10 pounds or back twisting of any nature (roll like a log when turning in bed). 4. You may ride in a car for 20-30 minutes at a time. No driving until after your first visit with your doctor. 5. Frequent changes of position and restricting sitting to 30 minutes at a time will help limit the amount of back spasms and stiffness you may experience. 6. You may discontinue the use of ambulatory aids (cane, crutches, etc.) once your strength and confidence allow. 7. You may internal corrosion specialist the shower and let water strike your incision when you arrive home at least once daily. Do not take a tub bath, sit in a hot tub or go into a swimming pool until after your first recheck in the office. SPECIAL CARE INSTRUCTIONS: VERY IMPORTANT TO READ AND REVIEW A. Your surgical incision has been closed with a cosmetic suture under the skin that will dissolve in about 6 weeks. In 14 days, you can use a pair of clean scissors and cut the suture that is left outside of the skin at the ends of your incision. 1. The small skin tapes can be removed 7 days after surgery if they have not fallen off by that point. 2. You may keep the wound open to air as much as possible to promote healing after post-op day number 5 unless told otherwise by your doctor. 3. If you think the wound looks like it is becoming infected (redness or worsening drainage) and/or you are experiencing fever, chill or worsening back pain and muscle spasms, contact the office so that we may evaluate you as soon as possible. B. Complications are uncommon, but please contact us if you have any signs or symptoms of: 1. wound infection (fever higher than 102.5 degrees F, redness, separation of wound, drainage, or increasing pain from the incision) 2. blood clots in legs (pain, swelling, redness and warmth in legs) 3. urinary tract infection (fever higher than 102.5 degrees F, burning upon urination or increased frequency of urination) 4. nerve problems (inability to walk on your toes or heels, numbness, loss of bowel or bladder control) 5. any other symptoms that concern you C. Please call the office at if you have any concerns or questions about your operation or recovery. D. No smoking! Smoking drastically decreases the chance of a solid fusion. E. Do not take any anti-inflammatory medications (Indocin, Advil, Motrin, Aspirin, Naprosyn, etc.) as these may inhibit the chance of a solid fusion. Tylenol is okay to take for pain. MANAGING PAIN AFTER SPINAL SURGERY 1. Narcotic medication is intended for short-term use and will be provided for surgical pain. Surgical pain usually lasts for a period of 4-6 weeks. Narcotic medication includes Percocet, Vicodin, Darvocet, Tylenol #3 or Lortab. 2. Longer-term pain is more appropriately treated with non-narcotic medication such as Tylenol ES. 3. Muscle spasm is not appropriately treated with narcotics. Muscle relaxers such as Soma, Flexeril or Skelaxin can be used along with Tylenol ES. 4. Remember that we all live with some "aches and pains". This is not unusual or uncommon after an injury or as we get older. a. Back pain is expected and may include muscle spasms for 4 to 6 weeks after surgery. The pain should gradually improve. If the pain worsens for no apparent reason, please contact the office. b. Intermittent leg pain may also be experienced and should not be concerned about unless it worsens for no apparent reason. If so, please contact the office. 5. We will provide appropriate medication within the normal guidelines of their prescribed use. We will also be very cautious and aware of potential abuse and extended duration of patients' medication needs. a. Pain medications are for your comfort and to assist with sleep and rest so that the tissue can heal. They are not provided in order to return to normal activity and should not be used through the day. To do so or worsening pain at night can result from ongoing tissue damage and development of tolerance to the prescribed medicine. 6. Please allow 2-3 days to process refills. Prescriptions will not be mailed but must be picked up at the office. FOLLOW UP VISIT: Keep your scheduled follow-up appointment. Any questions, please call the office at . Pending Studies at Discharge: No Stand-Alone Forms: [facility], Smoking Cessation Medications and DC Order Prescriptions: New oxycodone 5 mg tablet 5 mg PO Q6H PRN (Reason: pain, severe) Qty: 14 RF: 0 Continued buprenorphine-naloxone 8-2 mg film 1 film sublingual QAM RF: 0 fluticasone propionate [Flonase Allergy Relief] 50 mcg/actuation [place],Suspension 1 spray INTRANASAL QAM PRN (Reason: Congestion) RF: 0 Afrin (oxymetazoline) 0.05 % Mist 2 spray INTRANASAL Q12H PRN (Reason: Congestion) RF: 0 acetaminophen [Acetaminophen Extra Strength] 500 mg Tablet 500 mg PO Q6H PRN (Reason: pain) RF: 0 Discharge Orders: Discharge Order (Routine); Ordered 09/16/19 Ordered By: Sam Tineo Admission Data Admit Date/Time: 09/14/19 17:03 Attending Provider: Sam Tineo Admit Provider: Sam Tineo Primary Care Provider: Chitra Cruz
== END 2019-09-16 12:04 | disposition home or self-care (01) | DRG 455 ==
LOC: ASU 10:16 → 3E 17:03
DX: M48.062 Spinal stenosis, lumbar region with neurogenic claudication